=== PATIENT | male | born 1990 | race Caucasian/White ===

== ENCOUNTER 2019-06-30 21:46 | Emergency (ER) | payer SELFPAY ==
[~2019-06-30] VITALS: Ht 180.3 cm; Wt 91.4 kg
[2019-06-30 22:01] VITALS: BP 137/84; PULSE 63; RESP 20; Ht 180.3 cm; Wt 91.4 kg
== END 2019-07-01 03:14 | disposition left against medical advice (07) ==
LOC: FTE 21:46
DX: Z53.21 Procedure and treatment not carried out due to patient leaving prior to being seen by health care provider (principal)